=== PATIENT | male | born 1960 | race Caucasian/White ===

== ENCOUNTER 2022-04-05 15:10 | Outpatient (CLI) | payer OTHER ==
[2022-04-05 16:31] LABS: Bilirubin Neg (Negative); Blood, Urine Negative (Negative); Clarity Clear (Clear); Glucose, Urine (Dipstick) Normal (Negative); Ketone, Urine Negative (Negative); Leukocyte Negative (Negative); Nitrite Negative (Negative); Protein, Urine (Dipstick) Negative (Neg-Trace); Specific Gravity, Urine 1.015 (1.005-1.030); Urobilinogen Normal mg/dL (Less than 2)
[2022-04-05 16:42] LABS: #Basophils 0.1 10x3/uL (0.0-0.2); #Eosinphils 0.2 10x3/uL (0.0-0.5); #Monocytes 0.7 10x3/uL (0.0-1.1); #Neutrophils 6.3 10x3/uL (1.5-8.4); %Basophils 0.7 % (0.0-2.0); %Eosinophils 1.5 % (0.0-6.0); %Lymphocytes 29.3 % (18.0-47.0); %Monocytes 7.1 % (0.0-10.0); %Neutrophils 61.1 % (40.0-75.0); Hemoglobin 17.8 g/dL (13.5-17.5); Mean Corpuscular HGB CONC 35.2 g/dL (32.0-36.0); Mean Corpuscular Volume 85.3 fl (81.2-95.1); Mean Platelet Volume 10.1 fl (7.4-10.4); Platelet Count 233 10x3/uL (150-450); RBC Distribution Width 14.1 % (11.5-14.5); Red Blood Cell (RBC) Count 5.93 10x6/uL (4.32-5.72); White Blood Cell (WBC) Count 10.2 10x3/uL (3.5-10.5)
[2022-04-05 16:57] LABS: Prothrombin Time 10.6 sec (9.5-12.1)
[2022-04-05 17:21] LABS: Anion Gap 15 mmol/L (10-20); BUN (Urea Nitrogen) 17 mg/dL (8.4-25.7); Calc. Creatinine Clearance 0 mL/min (70-130); Calcium 9.8 mg/dL (7.8-10.44); Carbon Dioxide 23 mmol/L (22-29); Chloride 105 mmol/L (98-107); Estimated GFR 50; Glucose 67 mg/dL (70-105); Potassium 4.2 mmol/L (3.5-5.1); Sodium 139 mmol/L (136-145)
== END 2022-04-05 15:11 | disposition home or self-care (01) ==
LOC: LABBT 15:10
PROVIDERS: ATTEND Surgery
DX: Z01.818 Encounter for other preprocedural examination (principal); M17.0 Bilateral primary osteoarthritis of knee
CPT/HCPCS: 71046; 80048; 81003; 85025; 85610; 86850; 86900; 86901; 87081; 93005; 93010

== ENCOUNTER 2022-04-11 06:17 | Observation (INO) | payer OTHER ==
[2022-04-06 13:22] VITALS: BMI 33.0
[2022-04-11] MEDS ORDERED: Lidocaine 1% (PF) 30 ML VIAL ONE ×2 (06:35→06:51)
[2022-04-11] MEDS ORDERED: methylPREDNISolone Acetate 40 mg/ml Vial ONE (06:35)
[2022-04-11] MEDS ORDERED: Bupivacaine PF 0.5% 30 ML VIAL ONE ×2 (06:35→06:51)
[2022-04-11] MEDS ORDERED: Fentanyl 250 MCG/5 ML VIAL ONE (06:39)
[2022-04-11] MEDS ORDERED: Sodium Chloride 0.9% 100 ML ONE ×2 (06:47→07:11)
[2022-04-11] MEDS ORDERED: Tranexamic Acid 1,000 MG/10 ML VIAL ONE (06:47)
[2022-04-11] MEDS ORDERED: Vancomycin (BATCH) 1.5 GRAM/300 ML BAG ONE (06:47)
[2022-04-11] MEDS ORDERED: Fentanyl 100 MCG/2 ML VIAL ONE ×3 (06:51→13:20)
[2022-04-11] MEDS ORDERED: Midazolam HCl 2 mg/2 ml Vial ONE (06:51)
[2022-04-11] MEDS ORDERED: EPINEPHrine 1 MG/ML AMP ONE (06:52)
[2022-04-11] MEDS ORDERED: CEFAZOLIN 2 GM VIAL ONE (07:11)
[2022-04-11] MEDS ORDERED: traMADol HCl 50 MG TAB PO PRN (07:23)
[2022-04-11] MEDS ORDERED: HYDROcodone/Acetaminophen 10/325 mg Tablet PO PRN ×2 (07:23)
[2022-04-11] MEDS ORDERED: Zolpidem Tartrate 5 MG TAB PO PRN ×2 (07:23→07:30)
[2022-04-11] MEDS ORDERED: Promethazine HCl 25 MG/ML VIAL IM PRN ×2 (07:23→07:30)
[2022-04-11] MEDS ORDERED: Ondansetron PF 4 MG/2 ML Vial IVP PRN ×2 (07:23→07:30)
[2022-04-11] MEDS ORDERED: diphenhydrAMINE 25 MG CAP PO PRN (07:23)
[2022-04-11] MEDS ORDERED: Acetaminophen 325 MG TAB PO PRN (07:23)
[2022-04-11] MEDS ORDERED: Fentanyl 100 MCG/2 ML VIAL SLOW IVP PRN ×2 (07:23)
[2022-04-11 07:27] LABS: SARS-CoV-2 NAA Rapid Test Not Detected (NotDetected)
[2022-04-11] MEDS ORDERED: Dexamethasone 20 MG/5 ML VIAL ONE (07:30)
[2022-04-11] MEDS ORDERED: Lidocaine 1% PF 5 ML VIAL ONE (07:30)
[2022-04-11] MEDS ORDERED: PROPOFOL 200 MG/20 ML VIAL ONE (07:30)
[2022-04-11] MEDS ORDERED: Ropivacaine 0.2% 550 ML 550 ML NERVE BLCK SCH (07:30)
[2022-04-11] MEDS ORDERED: Ondansetron PF 4 MG/2 ML Vial ONE (07:30)
[2022-04-11] MEDS ORDERED: PHENYLEPHRINE-NS 100 MCG/ML 10 ML SYRINGE ONE (07:30)
[2022-04-11] MEDS ORDERED: ePHEDrine 50 MG/ML VIAL ONE (07:30)
[2022-04-11] MEDS ORDERED: Tranexamic Acid 1,000 MG in Sodium Chloride 0.9% 100 ML IVPB SCH (07:30)
[2022-04-11] MEDS ORDERED: Ketorolac Tromethamine 30 MG/ML VIAL ONE (07:30)
[2022-04-11] MEDS: Allopurinol 300 MG TAB PO SCH (14:10)
[2022-04-11] MEDS: Losartan 25 MG TAB PO SCH (14:10)
[2022-04-11] MEDS: Sodium Chloride 0.9% 1,000 ML IV SCH ×2 (14:10→15:58)
[2022-04-11] MEDS: Aspirin 81 mg Enteric Coated Tablet PO SCH ×2 (14:10→21:33)
[2022-04-11] MEDS: Amlodipine 10 MG TAB PO SCH (14:10)
[2022-04-11] MEDS: Ketorolac Tromethamine 30 MG/ML VIAL IVP SCH ×2 (14:24→21:33)
[2022-04-11] MEDS: CEFAZOLIN 2 GM in Sodium Chloride 0.9% 100 ML IVPB SCH (14:24)
[2022-04-11] MEDS ORDERED: VANCOMYCIN IVPB SCH (19:00)
[2022-04-11] MEDS ORDERED: Vancomycin 1.5 GRAM/300 ML BAG 1.5 GM in Premix Bag 1 BAG IVPB SCH (19:00)
[2022-04-11] MEDS ORDERED: SODIUM CHLORIDE 0.9% IVPB SCH (19:00)
[2022-04-12] MEDS: CEFAZOLIN 2 GM in Sodium Chloride 0.9% 100 ML IVPB SCH (00:12)
[2022-04-12 00:17] VITALS: TEMP 98.1
[2022-04-12] MEDS: Sodium Chloride 0.9% 1,000 ML IV SCH ×2 (05:46→10:48)
[2022-04-12] MEDS: Ketorolac Tromethamine 30 MG/ML VIAL IVP SCH ×2 (05:47→13:13)
[2022-04-12] MEDS ORDERED: Thyroid 60 MG TAB PO SCH (06:00)
[2022-04-12 06:51] LABS: Mean Corpuscular HGB CONC 34.6 g/dL (32.0-36.0); Mean Corpuscular Hemoglobin 31.2 pg (27.0-31.0); Mean Corpuscular Volume 90.3 fl (78.0-98.0); Mean Platelet Volume 7.8 fL (7.4-10.4); Platelet Count 226 10x3/uL (130-400); RBC Distribution Width 13.1 % (11.5-14.5); Red Blood Cell (RBC) Count 4.82 mill/uL (4.70-6.10); White Blood Cell (WBC) Count 15.7 10x3/uL (4.8-10.8)
[2022-04-12] MEDS ORDERED: Ferrous Gluconate 324 MG TAB PO SCH (08:00)
[2022-04-12] MEDS: Allopurinol 300 MG TAB PO SCH (08:14)
[2022-04-12] MEDS: Aspirin 81 mg Enteric Coated Tablet PO SCH (08:14)
[2022-04-12] MEDS: Losartan 25 MG TAB PO SCH (08:14)
[2022-04-12] MEDS: Amlodipine 10 MG TAB PO SCH (08:14)
[2022-04-12] MEDS ORDERED: Multivitamin W/ Minerals 1 TAB PO SCH (09:00)
[2022-04-12] MEDS ORDERED: Senokot S 8.6-50 MG TAB PO SCH (09:00)
[2022-04-12 12:03] VITALS: BP 154/82
[2022-04-12] MEDS ORDERED: HYDROcodone/Acetaminophen 7.5/325 mg Tablet PO PRN ×2 (12:03)
== END 2022-04-12 13:35 | disposition home or self-care (01) ==
LOC: SDC 06:17 → SURG A 07:23
PROVIDERS: ADMIT Orthopaedic Surgery; ATTEND Orthopaedic Surgery
PROC: 3E0U33Z Introduction of Anti-inflammatory into Joints, Percutaneous Approach (ICD-10-PCS; principal; 2022-04-11)
PROC: 0SRC0J9 Replacement of Right Knee Joint with Synthetic Substitute, Cemented, Open Approach (ICD-10-PCS; 2022-04-11)
DX: M17.0 Bilateral primary osteoarthritis of knee (principal); I10 Essential (primary) hypertension; G47.30 Sleep apnea, unspecified; E03.9 Hypothyroidism, unspecified; E78.5 Hyperlipidemia, unspecified; Z79.890 Hormone replacement therapy; Z79.899 Other long term (current) drug therapy; Z88.8 Allergy status to other drugs, medicaments and biological substances; Z20.822 Contact with and (suspected) exposure to COVID-19
CPT/HCPCS: 36415; 85027; A4306; C1713; C1776; J0171; J1030; J1100; J1885; J2001; J2250; J2405; J2704; J2795; J3010; J3370; J3490; S0020; U0002

== ENCOUNTER 2023-02-28 13:39 | Outpatient (CLI) | payer BC | END 2023-02-28 13:40 | disposition home or self-care (01) | LOC: LABBT 13:39 | PROVIDERS: ATTEND Orthopaedic Surgery | DX: Z01.818 Encounter for other preprocedural examination (principal); M17.12 Unilateral primary osteoarthritis, left knee | CPT/HCPCS: 71046; 93005; 93010 ==

== ENCOUNTER 2023-03-04 05:38 | Observation (INO) | payer BC ==
[2023-02-28 14:05] VITALS: BMI 30.2
[2023-02-28 16:14] LABS: #Basophils 0.1 10x3/uL (0.0-0.2); #Eosinphils 0.1 10x3/uL (0.0-0.5); #Monocytes 0.7 10x3/uL (0.0-1.1); #Neutrophils 4.9 10x3/uL (1.5-8.4); %Basophils 0.6 % (0.0-2.0); %Eosinophils 1.1 % (0.0-6.0); %Lymphocytes 29.5 % (18.0-47.0); %Monocytes 8.5 % (0.0-10.0); %Neutrophils 59.9 % (40.0-75.0); Hematocrit 49.6 % (38.8-50.0); Hemoglobin 17.1 g/dL (13.5-17.5); Mean Corpuscular HGB CONC 34.5 g/dL (32.0-36.0); Mean Platelet Volume 10.2 fl (7.4-10.4); Platelet Count 266 10x3/uL (150-450); White Blood Cell (WBC) Count 8.2 10x3/uL (3.5-10.5)
[2023-02-28 16:17] LABS: Bilirubin Neg (Negative); Blood, Urine Negative (Negative); Clarity Clear (Clear); Glucose, Urine (Dipstick) Normal (Negative); Ketone, Urine Negative (Negative); Leukocyte 25 (Negative); Nitrite Negative (Negative); Protein, Urine (Dipstick) Negative (Neg-Trace); Specific Gravity, Urine 1.015 (1.005-1.030); Urobilinogen Normal mg/dL (Less than 2)
[2023-02-28 16:26] LABS: Anion Gap 14 mmol/L (10-20); BUN (Urea Nitrogen) 11 mg/dL (8.4-25.7); Calc. Creatinine Clearance 0 mL/min (70-130); Calcium 9.8 mg/dL (7.8-10.44); Carbon Dioxide 24 mmol/L (22-29); Chloride 105 mmol/L (98-107); Estimated GFR 55; Glucose 79 mg/dL (70-105); Potassium 4.1 mmol/L (3.5-5.1); Sodium 139 mmol/L (136-145)
[2023-02-28 16:32] LABS: Prothrombin Time 10.8 sec (9.5-12.1)
[2023-03-04] MEDS ORDERED: Tranexamic Acid 1,000 MG/10 ML VIAL ONE ×2 (05:55→09:29)
[2023-03-04] MEDS ORDERED: Sodium Chloride 0.9% 100 ML ONE ×2 (05:55→06:59)
[2023-03-04] MEDS ORDERED: Vancomycin (BATCH) 1.5 GM/300 ML BAG ONE (05:56)
[2023-03-04] MEDS ORDERED: Midazolam HCl 2 mg/2 ml Vial ONE (06:20)
[2023-03-04] MEDS ORDERED: fentaNYL PF 100 MCG/2 ML SYRINGE ONE (06:20)
[2023-03-04] MEDS ORDERED: PROPOFOL 20 ML ONE (06:20)
[2023-03-04] MEDS ORDERED: Lidocaine 1% PF 5 ML VIAL ONE ×2 (06:22→06:28)
[2023-03-04] MEDS ORDERED: PROPOFOL 200 MG/20 ML VIAL ONE (06:28)
[2023-03-04] MEDS ORDERED: Ketorolac Tromethamine 30 MG/ML VIAL ONE ×2 (06:28→08:03)
[2023-03-04] MEDS ORDERED: ePHEDrine Sulfate 50 MG/10 ML VIAL ONE ×2 (06:28→07:36)
[2023-03-04] MEDS ORDERED: Dexamethasone 20 MG/5 ML VIAL ONE (06:28)
[2023-03-04] MEDS ORDERED: Ondansetron PF 4 MG/2 ML Vial ONE ×2 (06:28→08:03)
[2023-03-04] MEDS ORDERED: Bupivacaine PF 0.5% 30 ML VIAL ONE ×2 (06:31→07:22)
[2023-03-04] MEDS ORDERED: CEFAZOLIN 2 GM VIAL ONE (06:59)
[2023-03-04] MEDS ORDERED: fentaNYL 50 mcg/mL 1 mL Vial SLOW IVP PRN (07:12)
[2023-03-04] MEDS ORDERED: Zolpidem Tartrate 5 MG TAB PO PRN ×2 (07:15→07:21)
[2023-03-04] MEDS ORDERED: Ropivacaine 0.2% 550 ML 550 ML NERVE BLCK SCH (07:15)
[2023-03-04] MEDS ORDERED: Promethazine HCl 25 MG/ML VIAL IM PRN ×3 (07:15→08:01)
[2023-03-04] MEDS ORDERED: traMADol HCl 50 MG TAB PO PRN ×2 (07:15)
[2023-03-04] MEDS ORDERED: Ondansetron PF 4 MG/2 ML Vial IVP PRN ×2 (07:15→07:21)
[2023-03-04] MEDS ORDERED: diphenhydrAMINE 25 MG CAP PO PRN (07:21)
[2023-03-04] MEDS ORDERED: Acetaminophen 325 MG TAB PO PRN (07:21)
[2023-03-04] MEDS ORDERED: Lidocaine 1% (PF) 30 ML VIAL ONE (07:22)
[2023-03-04] MEDS ORDERED: EPINEPHrine 1 MG/ML VIAL ONE (07:22)
[2023-03-04] MEDS ORDERED: Tranexamic Acid 1,000 MG in Sodium Chloride 0.9% 100 ML IVPB SCH (07:30)
[2023-03-04] MEDS ORDERED: fentaNYL 50 mcg/mL 1 mL Vial ONE ×2 (07:39→07:50)
[2023-03-04] MEDS ORDERED: HYDROmorphone 2 MG/ML VIAL ONE (07:55)
[2023-03-04] MEDS ORDERED: HYDROmorphone 2 MG/ML VIAL SLOW IVP PRN (08:01)
[2023-03-04] MEDS ORDERED: Meperidine HCl/PF 25 MG/ML VIAL SLOW IVP PRN (08:01)
[2023-03-04] MEDS ORDERED: Ondansetron HCl/PF 4 MG/2 ML Vial IVP PRN (08:01)
[2023-03-04] MEDS ORDERED: Dexamethasone 4 mg/ml Vial ONE (08:03)
[2023-03-04] MEDS ORDERED: Fentanyl 250 MCG/5 ML VIAL ONE (09:29)
[2023-03-04] MEDS: Amlodipine 10 MG TAB PO SCH (10:55)
[2023-03-04] MEDS: Sodium Chloride 0.9% 1,000 ML IV SCH ×2 (10:55→17:34)
[2023-03-04] MEDS: Allopurinol 300 MG TAB PO SCH (10:55)
[2023-03-04] MEDS: Losartan 25 MG TAB PO SCH (10:56)
[2023-03-04] MEDS: Aspirin 81 mg Enteric Coated Tablet PO SCH ×2 (10:56→21:45)
[2023-03-04] MEDS: Ketorolac Tromethamine 30 MG/ML VIAL IVP SCH ×2 (13:49→21:45)
[2023-03-04] MEDS: CEFAZOLIN 2 GM in Sodium Chloride 0.9% 100 ML IVPB SCH ×2 (13:50→22:08)
[2023-03-04] MEDS: HYDROcodone/Acetaminophen 10/325 mg Tablet PO PRN ×3 (13:50→22:08)
[2023-03-04] MEDS ORDERED: Vancomycin 1.5 GM in Sodium Chloride 0.9% 250 ML 300 ML IVPB SCH (18:00)
[2023-03-04] MEDS ORDERED: FLU VACC QS2023-24(6MOS UP)/PF 60 MCG/0.5 ML SYRINGE IM ONE (18:00)
[2023-03-04] MEDS ORDERED: Vancomycin (BATCH) 1.5 GM in Premix 1 BAG IVPB SCH (18:00)
[2023-03-05] MEDS: HYDROcodone/Acetaminophen 10/325 mg Tablet PO PRN ×3 (02:41→12:11)
[2023-03-05] MEDS: Sodium Chloride 0.9% 1,000 ML IV SCH (04:03)
[2023-03-05 05:39] LABS: Hematocrit 40.8 % (42.0-52.0); Hemoglobin 14.1 g/dL (14.0-18.0); Mean Corpuscular HGB CONC 34.6 g/dL (32.0-36.0); Mean Corpuscular Hemoglobin 30.3 pg (27.0-31.0); Mean Corpuscular Volume 87.6 fl (78.0-98.0); Mean Platelet Volume 9.9 fL (7.4-10.4); Platelet Count 206 10x3/uL (130-400); RBC Distribution Width 13.6 % (11.5-14.5); Red Blood Cell (RBC) Count 4.66 mill/uL (4.70-6.10); White Blood Cell (WBC) Count 12.8 10x3/uL (4.8-10.8)
[2023-03-05] MEDS: Ketorolac Tromethamine 30 MG/ML VIAL IVP SCH (05:44)
[2023-03-05] MEDS ORDERED: Thyroid 60 MG TAB PO SCH (06:00)
[2023-03-05] MEDS ORDERED: Aspirin 81 mg Enteric Coated Tablet ONE (07:58)
[2023-03-05] MEDS ORDERED: Ferrous Gluconate 324 MG TAB PO SCH (08:00)
[2023-03-05] MEDS: Amlodipine 10 MG TAB PO SCH (08:03)
[2023-03-05] MEDS: Aspirin 81 mg Enteric Coated Tablet PO SCH (08:03)
[2023-03-05] MEDS: Allopurinol 300 MG TAB PO SCH (08:03)
[2023-03-05] MEDS: Losartan 25 MG TAB PO SCH (08:03)
[2023-03-05] MEDS ORDERED: Senokot S 8.6-50 MG TAB PO SCH (09:00)
[2023-03-05] MEDS ORDERED: Multivitamin W/ Minerals 1 TAB PO SCH (09:00)
[2023-03-05 12:27] VITALS: BP 132/83; TEMP 99
== END 2023-03-05 12:42 | disposition home or self-care (01) ==
LOC: SDC 05:38 → SJJU 07:21
PROVIDERS: ADMIT Orthopaedic Surgery; ATTEND Orthopaedic Surgery
PROC: 0SRD0JZ Replacement of Left Knee Joint with Synthetic Substitute, Open Approach (ICD-10-PCS; principal; 2023-03-05)
DX: M17.12 Unilateral primary osteoarthritis, left knee (principal); M10.9 Gout, unspecified; E78.5 Hyperlipidemia, unspecified; E03.9 Hypothyroidism, unspecified; Z98.890 Other specified postprocedural states; Z79.899 Other long term (current) drug therapy; Z96.651 Presence of right artificial knee joint; Z79.890 Hormone replacement therapy; Z88.8 Allergy status to other drugs, medicaments and biological substances
CPT/HCPCS: 36415; 80048; 81003; 85025; 85027; 85610; 86850; 86900; 86901; 87081; A4306; C1713; C1776; J0171; J1100; J1170; J1885; J2001; J2250; J2405; J2704; J2795; J3010; J3370; J3490; S0020

== ENCOUNTER 2024-02-03 10:55 | Outpatient (CLI) | payer BC ==
[2024-02-03 12:04] LABS: #Basophils 0.05 10x3/uL (0.0-0.2); %Basophils 0.8 % (0.0-1.0); %Eosinophils 1.2 % (0.0-10.0); %Lymphocytes 34.8 % (21.0-51.0); %Neutrophils 53.9 % (42.0-75.0); Hematocrit 47.5 % (42.0-52.0); Hemoglobin 16.7 g/dL (14.0-18.0); Mean Corpuscular HGB CONC 35.2 g/dL (32.0-36.0); Mean Corpuscular Hemoglobin 29.6 pg (27.0-31.0); Mean Corpuscular Volume 84.1 fL (78.0-98.0); Mean Platelet Volume 9.4 fL (7.4-10.4); Platelet Count 232 10x3/uL (130-400); RBC Distribution Width 13.2 % (11.5-14.5); Red Blood Cell (RBC) Count 5.65 mill/uL (4.70-6.10)
[2024-02-03 12:28] LABS: Anion Gap 12 mmol/L (10-20); BUN (Urea Nitrogen) 12 mg/dL (8.4-25.7); Calc. Creatinine Clearance 0 mL/min (70-130); Carbon Dioxide 24 mmol/L (23-31); Chloride 106 mmol/L (98-107); Estimated GFR 58; Glucose 88 mg/dL (80-115); Potassium 4.2 mmol/L (3.5-5.1); Sodium 138 mmol/L (136-145)
== END 2024-02-03 10:56 | disposition home or self-care (01) ==
LOC: LABBT 10:55
PROVIDERS: ATTEND Neurological Surgery
DX: Z01.818 Encounter for other preprocedural examination (principal); M54.12 Radiculopathy, cervical region
CPT/HCPCS: 80048; 85025

== ENCOUNTER 2024-02-03 12:08 | Day surgery (SDC) | payer BC ==
[2024-01-31 15:55] VITALS: BMI 31.5
[2024-02-03] MEDS ORDERED: PROPOFOL 20 ML ONE (12:56)
[2024-02-03] MEDS ORDERED: Midazolam HCl 2 mg/2 ml Vial ONE (15:10)
[2024-02-03] MEDS ORDERED: fentaNYL PF 100 MCG/2 ML SYRINGE ONE (15:11)
[2024-02-03] MEDS ORDERED: PHENYLEPHRINE-NS 100 MCG/ML 10 ML SYRINGE ONE (15:11)
[2024-02-03] MEDS ORDERED: GLYCOPYRROLATE/PF 0.2 MG/ML VIAL ONE (15:12)
[2024-02-03] MEDS ORDERED: Lidocaine 1% PF 5 ML VIAL ONE (15:20)
== END 2024-02-03 16:50 | disposition home or self-care (01) ==
LOC: MRI 12:08
PROVIDERS: ATTEND Neurological Surgery
DX: M47.22 Other spondylosis with radiculopathy, cervical region (principal); I12.9 Hypertensive chronic kidney disease with stage 1 through stage 4 chronic kidney disease, or unspecified chronic kidney disease; N18.9 Chronic kidney disease, unspecified; K21.9 Gastro-esophageal reflux disease without esophagitis; G47.33 Obstructive sleep apnea (adult) (pediatric); M19.90 Unspecified osteoarthritis, unspecified site; M10.9 Gout, unspecified; E66.9 Obesity, unspecified; Z68.30 Body mass index [BMI] 30.0-30.9, adult; Z96.653 Presence of artificial knee joint, bilateral; Z98.49 Cataract extraction status, unspecified eye; Z98.890 Other specified postprocedural states; Z88.8 Allergy status to other drugs, medicaments and biological substances; Z79.899 Other long term (current) drug therapy
CPT/HCPCS: 72141; 80048; 85025; J2250; J2704; J3490

== ENCOUNTER 2024-02-05 05:59 | Day surgery (SDC) | payer BC ==
[2024-02-03 11:32] VITALS: BMI 31.5
[2024-02-05] MEDS ORDERED: fentaNYL PF 100 MCG/2 ML SYRINGE ONE ×4 (06:17→09:17)
[2024-02-05] MEDS ORDERED: PROPOFOL 20 ML ONE (06:17)
[2024-02-05] MEDS ORDERED: Lidocaine 1% PF 5 ML VIAL ONE (06:20)
[2024-02-05] MEDS ORDERED: Rocuronium Bromide 10 MG/ML (10ML VIAL) ONE (06:20)
[2024-02-05] MEDS ORDERED: EPINEPHrine 1 MG/ML VIAL ONE (06:28)
[2024-02-05] MEDS ORDERED: Bupivacaine PF 0.5% 30 ML VIAL ONE (06:28)
[2024-02-05] MEDS ORDERED: Thrombin 5000 UNITS/5 ML VIAL ONE (06:28)
[2024-02-05] MEDS ORDERED: CEFAZOLIN 2 GM VIAL ONE ×2 (06:44→09:06)
[2024-02-05] MEDS ORDERED: Sterile Water 0 ML ONE (07:13)
[2024-02-05] MEDS ORDERED: Ondansetron PF 4 MG/2 ML Vial ONE (07:31)
[2024-02-05] MEDS ORDERED: Dexamethasone 20 MG/5 ML VIAL ONE ×2 (07:31→09:44)
[2024-02-05] MEDS ORDERED: PHENYLEPHRINE-NS 100 MCG/ML 10 ML SYRINGE ONE (07:39)
[2024-02-05] MEDS ORDERED: ePHEDrine Sulfate 50 MG/10 ML VIAL ONE (07:52)
[2024-02-05] MEDS ORDERED: Lidocaine 2% PF 5 ML VIAL ONE (08:31)
[2024-02-05] MEDS ORDERED: SUGAMMADEX SODIUM 200 MG/2 ML VIAL ONE (08:31)
[2024-02-05] MEDS ORDERED: Morphine 2 MG/ML VIAL ONE (09:03)
[2024-02-05] MEDS ORDERED: Cyclobenzaprine 10 MG TAB ONE (09:06)
[2024-02-05] MEDS ORDERED: HYDROmorphone 0.5 MG/0.5 ML SYRINGE ONE (09:17)
[2024-02-05] MEDS ORDERED: Sterile Water 10 ML ONE (09:20)
== END 2024-02-05 11:20 | disposition home or self-care (01) ==
LOC: SDC 05:59
PROVIDERS: ATTEND Neurological Surgery
PROC: 0RG20K0 Fusion of 2 or more Cervical Vertebral Joints with Nonautologous Tissue Substitute, Anterior Approach, Anterior Column, Open Approach (ICD-10-PCS; principal; 2024-02-05)
PROC: 0RG20A0 Fusion of 2 or more Cervical Vertebral Joints with Interbody Fusion Device, Anterior Approach, Anterior Column, Open Approach (ICD-10-PCS; principal; 2024-02-05)
PROC: 0RG2070 Fusion of 2 or more Cervical Vertebral Joints with Autologous Tissue Substitute, Anterior Approach, Anterior Column, Open Approach (ICD-10-PCS; principal; 2024-02-05)
DX: M54.12 Radiculopathy, cervical region (principal); I12.9 Hypertensive chronic kidney disease with stage 1 through stage 4 chronic kidney disease, or unspecified chronic kidney disease; N18.9 Chronic kidney disease, unspecified; M19.90 Unspecified osteoarthritis, unspecified site; K21.9 Gastro-esophageal reflux disease without esophagitis; G47.33 Obstructive sleep apnea (adult) (pediatric); Z98.49 Cataract extraction status, unspecified eye; Z98.890 Other specified postprocedural states; Z96.651 Presence of right artificial knee joint; Z79.899 Other long term (current) drug therapy; Z88.8 Allergy status to other drugs, medicaments and biological substances
CPT/HCPCS: C1713; C1889; J0171; J0665; J1100; J2272; J2405; J2704